=== PATIENT | male | born 1970 | race Two or more races ===

== ENCOUNTER 2020-09-17 08:48 | Emergency (ER) | payer OTHER ==
[~2020-09-17] VITALS: Ht 182.9 cm; Wt 88.5 kg
[2020-09-17] MEDS ORDERED: CIPRO500 MG PO (10:38)
== END 2020-09-17 12:51 | disposition home or self-care (01) ==
LOC: ER 08:48
DX: S91.321A Laceration with foreign body, right foot, initial encounter (principal); W45.8XXA Other foreign body or object entering through skin, initial encounter; Y93.89 Activity, other specified; Y92.89 Other specified places as the place of occurrence of the external cause; Y99.8 Other external cause status